=== PATIENT | male | born 1975 | race Caucasian/White ===

== ENCOUNTER 2024-02-13 07:43 | Outpatient (CLI) | payer OTHER, BC | END 2024-02-13 23:59 | disposition home or self-care (01) | LOC: MRI02 07:43 | PROVIDERS: ATTEND Orthopaedic Surgery | DX: S46.012A Strain of muscle(s) and tendon(s) of the rotator cuff of left shoulder, initial encounter (principal); M25.812 Other specified joint disorders, left shoulder; M65.811 Other synovitis and tenosynovitis, right shoulder; M77.8 Other enthesopathies, not elsewhere classified; M25.512 Pain in left shoulder; X58.XXXA Exposure to other specified factors, initial encounter; Y93.89 Activity, other specified; Y92.89 Other specified places as the place of occurrence of the external cause; Y99.8 Other external cause status | CPT/HCPCS: 73221 ==